=== PATIENT | female | born 1975 | race African-American/Black ===

== ENCOUNTER 2017-06-11 09:29 | Emergency (ER) | payer OTHER ==
[~2017-06-11 09:29] MED LIST: AMLO5TAB2 PO; MAXZTAB PO
[2017-06-11 09:41] VITALS: BP 123/81; PULSE 120; RESP 17; TEMP 98.2; O2SAT 98
[2017-06-11] MEDS ORDERED: IBUP800T23 PO (09:47)
[2017-06-11] MEDS ORDERED: OXYC1CAP PO (09:47)
--- NOTE | 2017-06-11 09:47 | PD ---
HPI Chief Complaint: Back/ Neck Pain or Injury Time Seen by Provider: 09:40 Travel History International Travel<30 days: No Contact w/Intl Traveler<30days: No Traveled to known affect area: No History of Present Illness HPI Patient presents with right lower back pain acute in onset yesterday morning. Aggravated by movement, relieved with immobility. Denies any trauma misstep or fall. Constant in nature, 10 out of 10, poor response to ibuprofen and warm heat. Recent history of a hysterectomy 2 weeks ago. Patient has concerns that something is going wrong with the previous surgery. Reports normal urination. Reports normal bowels. Denies any nausea or vomiting. No new rashes. No history of kidney stones. PFSH Past Medical History Anxiety: Yes Depression: Yes Cancer: Yes ( CERVICAL - PT STATES PRE CANCER) Cardiovascular Problems: Yes High Cholesterol: No Diabetes: No Diminished Hearing: Yes (LEFT) Endocrine: No Gastrointestinal Disorders: No Genitourinary: No Hepatitis: No Hiatal Hernia: No Hypertension: Yes Immune Disorder: No Musculoskeletal: No Neurologic: Yes (VERTIGO-CHRONIC ) Psychiatric: No Reproductive: Yes Respiratory: No Immunizations Current: Yes Thyroid Disease: No ?: Not Menopausal: No : 1 Para: 1 Ectopic : No Ovarian Cysts: No Past Surgical History AICD: No Gynecologic Surgery: Yes (TO REMOVE CANCER CELLS-STAGE 4 CERVICAL [place] REMOVAL PT DENIES CANCER) Hysterectomy: Yes Joint Replacement: No Oral Surgery: Yes (ROOT CANAL) Pacemaker: No Social History Alcohol Use: Yes (OCC) Tobacco Use: No Substance Use: No Allergies-Medications (Allergen,Severity, Reaction): Coded Allergies: Provera (Verified Allergy, Severe, NAUSEA, 06/11/17) Uncoded Allergies: ANESTHESIA (Allergy, Intermediate, WHEEZY, COUGH, 12/25/15) Reported Meds & Prescriptions Reported Meds & Active Scripts Active Reported Ibuprofen 800 Mg Tab 800 Mg PO Q8H PRN Oxycodone (Oxycodone HCl) 5 Mg Cap 5 Mg PO Q8H PRN Maxzide-25 (Triamterene-Hydrochlorothiazide) 37.5-25 Mg Tab 1 Tab PO DAILY Review of Systems General / Constitutional: No: Fever Eyes: No: Visual changes HENT: No: Headaches Cardiovascular: No: Chest Pain or Discomfort Respiratory: No: Shortness of Breath Gastrointestinal: No: Abdominal Pain Genitourinary: No: Dysuria Musculoskeletal: Positive: Pain Skin: No Rash Neurologic: No: Weakness Psychiatric: No: Depression Endocrine: No: Polydipsia Hematologic/Lymphatic: No: Easy Bruising Physical Exam Narrative GENERAL: Well-nourished, well-developed patient. SKIN: Focused skin assessment warm/dry. HEAD: Normocephalic. EYES: No scleral icterus. No injection or drainage. NECK: Supple, trachea midline. No JVD or lymphadenopathy. CARDIOVASCULAR: Regular rate and rhythm without murmurs, gallops, or rubs. RESPIRATORY: Breath sounds equal bilaterally. No accessory muscle use. GASTROINTESTINAL: Abdomen soft, non-tender, nondistended. MUSCULOSKELETAL: No cyanosis, or edema. BACK: Nontender without obvious deformity. No CVA tenderness. Examination lumbar sacral spine reveals no midline tenderness pain is localized to the right lower back, it is not aggravated with palpation Data Data Last Documented VS Vital Signs Date Time Temp Pulse Resp B/P Pulse Ox O2 Delivery O2 Flow Rate FiO2 06/11/17 09:41 98.2 120 17 123/81 98 Orders Ketorolac Inj (Toradol Inj) (06/11/17 10:00) Ct Abd/Pel W Iv Contrast(Rout) (06/11/17 09:53) Iohexol 350 Inj (Omnipaque 350 Inj) (06/11/17 10:20) MDM Medical Decision Making Medical Screen Exam Complete: Yes Emergency Medical Condition: Yes Differential Diagnosis Musculoskeletal pain, nephrolithiasis, surgical consultation Narrative Course Assessment and plan discussed with patient and at bedside. Last 72 hours Impressions Abdomen/Pelvis CT 06/11/17 0953 Signed Impressions: Service Date/Time: Sunday, June 11, 2017 10:01 - CONCLUSION: 1. Trace fluid in the pelvis with small cystic masses in both adnexal regions, nonspecific. Pelvic process as source of pain is suspected. 2. Small contracted gallbladder 3. Parapelvic cyst on the left 4. Mild degenerative changes present in the thoracic spine worse at L5-S1. Ryan Schulz MD FACR Diagnosis Primary Impression: Strain of lumbar paraspinal muscle Qualified Code: S39.012A - Strain of lumbar paraspinal muscle, initial encounter Patient Instructions: General Instructions Additional Instructions: Encourage nonsteroidal anti-inflammatories warm heat gentle stretching and strengthening and massage. Muscle relaxer as needed. Patient has pain medications at home. Encouraged to follow-up with PCP. Encouraged to return to emergency room with any onset of new symptoms. Med/Other Pt SpecificInfo: Prescription(s) given Scripts Cyclobenzaprine (Flexeril)10 Mg Tab10 Mg PO TID #30 TAB Ref 0 Prov:Bora Baltazar MD 06/11/17 Disposition: 01 DISCHARGE HOME Condition: Good Bora Baltazar MD Jun 11, 2017 09:47
[2017-06-11] MEDS ORDERED: KETOROLAC TROMETHAMINE 60 MG/2 ML (IM) VIAL IM ONE (10:00)
[2017-06-11] MEDS ORDERED: IOHEXOL 350 MG/ML 10 ML VIAL (for RAD DIAG) IV ONE (10:20)
--- NOTE | 2017-06-11 10:26 | RADRPT ---
EXAM DATE/TIME: 06/11/2017 10:01 [facility] COMPARISON: No previous studies available for comparison. INDICATIONS : Right lower back pain since yesterday. Recent hysterectomy two weeks ago. IV CONTRAST: 95 cc Omnipaque 350 (iohexol) IV ORAL CONTRAST: No oral contrast ingested. RADIATION DOSE: 18.92 CTDIvol (mGy) MEDICAL HISTORY : Hypertension. SURGICAL HISTORY : Hysterectomy. ENCOUNTER: Initial ACUITY: 2 days PAIN SCALE: 9/10 LOCATION: Right lower quadrant TECHNIQUE: Volumetric scanning of the abdomen and pelvis was performed. Using automated exposure control and ad justment of the mA and/or kV according to patient size, radiation dose was kept as low as reasonably achievable to obtain optimal diagnostic quality images. DICOM format image data is available electro nically for review and comparison. FINDINGS: The lung base is clear. The liver, spleen, pancreas and adrenal glands are unremarkable. The gallbladder is small and contracted The right kidney contains 2 small 1 mm stone without obstruction or mass. 4.7 cm left parapelvic cyst There is no pyelonephritis The region of the cecum and terminal ileum appear unremarkable Small 2 cm cystic mass is present in the left adnexa region. 2.5 similar cystic mass is present in t he right adnexa region. Trace fluid is present in the pelvis. There is no free air. There is no adenopathy. CONCLUSION: 1. Trace fluid in the pelvis with small cystic masses in both adnexal regions, nonspecific. Pelvic p rocess as source of pain is suspected. 2. Small contracted gallbladder 3. Parapelvic cyst on the left 4. Mild degenerative changes present in the thoracic spine worse at L5-S1. Ryan Schulz MD FACR on June 11, 2017 at 10:22 Board Certified Radiologist. This report was verified electronically.
[2017-06-11] MEDS ORDERED: CYCL1TAB29 PO (10:44)
== END 2017-06-11 11:49 | disposition home or self-care (01) ==
LOC: PHED 09:29
DX: S39.012A Strain of muscle, fascia and tendon of lower back, initial encounter (principal); X58.XXXA Exposure to other specified factors, initial encounter
CPT/HCPCS: 74177; 96372; 99285; J1885; Q9967